=== PATIENT | male | born 1995 | race Caucasian/White ===

== ENCOUNTER 2018-04-25 01:36 | Emergency (ER) | payer OTHER ==
--- NOTE | 2018-04-25 02:15 | EDPHY ---
H & P Stated Complaint: Kidney pain on R side, Hx kidney stones Time Seen by Provider: 04/25/18 01:41 HPI/ROS: Chief Complaint: Flank pain HPI: 22-year-old male had the onset of right flank pain several hours ago. Pain radiated to his right groin. He has a history of kidney stones when he was 14 years old. Pain felt similar. At worst is an 8/10. He cannot find a position of comfort. No urinary urgency or frequency. Patient did vomit once. After vomiting the pain resolved. No diarrhea or constipation. No fevers or chills. ROS: 10 systems were reviewed and were negative except those elements noted in the HPI. PMH: Kidney stones Social History: No smoking, occasional alcohol, occasional marijuana Family History: non-contributory Physical Exam: Gen: Awake, Alert, No Distress HEENT: Nose: no rhinorrhea Eyes: PERRLA, EOMI Mouth: Moist mucosa Neck: Supple, no JVD Chest: nontender, lungs clear to auscultation Heart: S1, S2 normal, no murmur Abd: Soft, non-tender, no guarding Back: no CVA tenderness, no midline tenderness Ext: no edema, non-tender Skin: no rash Neuro: CN II-XII intact, Sensation grossly intact, Strength 5/5 in bilateral upper and lower extremities - Personal History Current Tetanus/Diphtheria Vaccine: Yes Current Tetanus Diphtheria and Acellular Pertussis (TDAP): Yes - Medical/Surgical History Hx Asthma: No Hx Chronic Respiratory Disease: No Hx Diabetes: No Hx Cardiac Disease: No Hx Renal Disease: No Hx Cirrhosis: No Hx Alcoholism: No Hx HIV/AIDS: No Hx Splenectomy or Spleen Trauma: No Other PMH: kindey stones - Social History Smoking Status: Never smoked Constitutional: Initial Vital Signs Temperature (C) 36.7 C 04/25/18 01:42 Heart Rate 83 04/25/18 01:42 Respiratory Rate 16 04/25/18 01:42 Blood Pressure 157/91 H 04/25/18 01:42 O2 Sat (%) 96 04/25/18 01:42 O2 Delivery Mode Room Air Allergies/Adverse Reactions: No Known Allergies Allergy (Unverified 04/25/18 01:41) Home Medications: Medication Instructions Recorded Bupropion HBr 04/25/18 Strattera 04/25/18 Medical Decision Making - Diagnostics Imaging Results: Renal ultrasound is negative for hydro or visible calculus. ED Course/Re-evaluation: Patient is pain free. He has hematuria but no pyuria. Ultrasound shows no hydronephrosis or evidence of kidney stone. Symptoms consistent with a passed stone. Plan will be for discharge with follow-up with Urology. Return for any concerns. - Data Points Laboratory Results: 04/25/18 01:45 Urine Color YELLOW Urine Appearance MODERATELY TURBID Urine pH 6.0 (5.0-7.5) Ur Specific [place] 1.025 (1.002-1.030) Urine Protein NEGATIVE (NEGATIVE) Urine Ketones NEGATIVE (NEGATIVE) Urine Blood 2+ H (NEGATIVE) Urine Nitrate NEGATIVE (NEGATIVE) Urine Bilirubin NEGATIVE (NEGATIVE) Urine Urobilinogen NEGATIVE EU EU (0.2-1.0) Ur Leukocyte Esterase NEGATIVE (NEGATIVE) Urine RBC 50-182 /hpf H /hpf (0-3) Urine WBC 1-3 /hpf /hpf (0-3) Ur Epithelial Cells NONE SEEN /lpf /lpf (NONE-1+) Amorphous Sediment PRESENT /hpf /hpf (NONE-1+) Urine Bacteria TRACE /hpf H /hpf (NONE SEEN) Urine Mucus 1+ /lpf /lpf (NONE-1+) Urine Glucose NEGATIVE (NEGATIVE) Departure - Departure Disposition: Home, Routine, Self-Care Clinical Impression: Kidney stone Condition: Good Instructions: Kidney Stones (ED) Additional Instructions: Make sure to drink plenty of water, at least 8, 8 oz glasses per day. Take ibuprofen, 600 mg every 8 hr. You may alternate with acetaminophen, 1000 mg every 8 hr. Follow-up with Urology in about a week. Return emergency department for increasing pain, uncontrolled nausea vomiting, fevers, chills, or any other concerns. Referrals: NONE *PRIMARY CARE P,. [Primary Care Provider] - As per Instructions [facility] [Clinic] - As per Instructions Zheng Madrigal MD [Medical Doctor] - As per Instructions
[2018-04-25 03:04] VITALS: BP 129/75
== END 2018-04-25 03:03 | disposition home or self-care (01) ==
DX: R10.31 Right lower quadrant pain (principal)